=== PATIENT | female | born 1935 | race Caucasian/White ===

== ENCOUNTER 2017-12-02 13:47 | Emergency (ER) | payer MEDICARE, OTHER ==
[2017-12-02] MEDS ORDERED: Acetaminophen/HYDROcodone 325-5 MG Tab PO ONE (15:00)
--- NOTE | 2017-12-02 15:06 | EDM.PDOC ---
ED HPI GENERAL MEDICAL PROBLEM - General Chief Complaint: Lower Extremity Injury/Pain Stated Complaint: HIP PAIN DUE TO FALL Time Seen by Provider: 12/02/17 14:18 - History of Present Illness INITIAL COMMENTS - FREE TEXT/NARRATIVE: This is 82-year-old female accompanied by her family brought into the emergency department for an evaluation of right hip pain after fall yesterday. Patient stated that she lives alone in her trailer, when she was going to the bathroom she slipped and fell onto her right hip on the trailer floor where she sustaining injury to her right hip and buttocks area. She further stated that she had right hip replacement approximately one and half years ago however has no complication postsurgically. She was able to walk without any assistive device and able to move her right lower extremity after fall yesterday. She denies any numbness or weakness of the lower extremities after the fall. However she is complaining of pain to her right-sided hip, rib cage, and buttocks area, which she rated the pain level approximately 8 on a scale of 0- 10. Pain is mainly aggravated by active range of motion while no specific alleviating factors contribute to her pain. She used Tylenol this morning to alleviate pain prior to arrival without any significant help in the pain. She denies striking her head from fall, further denies any bowel or bladder incontinence, dizziness, chest pain or palpitation, shortness of breath, numbness, paresthesia, or weakness. Denies any other concerns at this time. Right Hip Pain Score (Numeric/FACES): 8 Right Chest Pain Score (Numeric/FACES): 8 - Related Data Allergies Allergy/AdvReac Type Severity Reaction Status Date / Time castor oil Allergy Vomiting Verified 12/02/17 14:05 ether Allergy Syncope Verified 12/02/17 14:05 Home Meds: Home Meds Lisinopril 20 mg PO DAILY 12/02/17 [History] Lovastatin 20 mg PO DAILY 12/02/17 [History] Meloxicam 15 mg PO DAILY 12/02/17 [History] amLODIPine Besylate [Norvasc] 10 mg PO DAILY 12/02/17 [History] Past Medical History Cardiovascular History: Reports: High Cholesterol, Hypertension - Past Surgical History Musculoskeletal Surgical History: Reports: Hip Replacement Social & Family History - Tobacco Use Smoking Status *Q: Never Smoker Review of Systems - Review of Systems Review Of Systems: ROS reveals no pertinent complaints other than HPI. ED EXAM, GENERAL - Physical Exam Exam: See Below Exam Limited By: No Limitations General Appearance: Alert, WD/WN, No Apparent Distress Head: Atraumatic, Normocephalic Neck: Normal Inspection, Supple, Non-Tender, Full Range of Motion Respiratory/Chest: No Respiratory Distress, Lungs Clear, Normal Breath Sounds, No Accessory Muscle Use, Other (Diffuse tenderness to palpation over the right mid axillary rib cage. No bruises) Cardiovascular: Normal Peripheral Pulses, Regular Rate, Rhythm GI/Abdominal: Normal Bowel Sounds, Soft Back Exam: Normal Inspection, Full Range of Motion, NT Extremities: Normal Inspection, No Pedal Edema, Normal Capillary Refill, Other ( Limited range of motion on the right hip secondary to pain. Diffuse tenderness to palpation upon the right hip) Neurological: Alert, Oriented, Normal Cognition, No Motor/Sensory Deficits Psychiatric: Normal Affect, Normal Mood Skin Exam: Warm, Dry, Intact, Normal Color, No Rash Course - Vital Signs Last Recorded V/S: Last Vital Signs Temp 36.4 C 12/02/17 14:05 Pulse 84 12/02/17 14:05 Resp BP 150/79 H 12/02/17 14:05 Pulse Ox 91 L 12/02/17 14:05 - Orders/Labs/Meds Orders: Active Orders 24 hr Category Date Time Status Hip Min 1V w Pelvis Rt [CR] Stat Exams 12/02/17 14:56 Taken Ribs 2V w Chest Rt [CR] Stat Exams 12/02/17 14:56 Taken Meds: Medications Discontinued Medications Generic Name Dose Route Start Last Admin Trade Name Damon PRN Reason Stop Dose Admin Hydrocodone Bitart/Acetaminophen 1 tab 12/02/17 15:00 12/02/17 15:13 [place] 325-5 Mg PO 12/02/17 15:01 1 tab ONETIME ONE Administration - Re-Assessments/Exams Free Text/Narrative Re-Assessment/Exam: 12/02/17 16:40 At this time, patient has been evaluated at bedtime. She stated that she is feeling much better and her pain is decreased to 1 on a scale of 0-10. She denies any numbness, weakness, or unable to walk at this time. She is able to move all 4 of her extremities without any significant pain. Patient is ready for discharge. Departure - Departure Time of Disposition: 16:45 Disposition: Home, Self-Care 01 Condition: Good Clinical Impression: Rib pain on right side, Contusion of right hip, Fall at home - Discharge Information Instructions: Contusion, [id number], Hip Pain, Chest Wall Pain Referrals: PCP,Not In Area [Primary Care Provider] - 3 Days (Please call your primary care provider in 3-5 days for reevaluation of today's emergency room visit) Forms: ED Department Discharge Additional Instructions: Patient and family both have been advised to use ibuprofen 800 mg or Tylenol 1000 mg 3 times a day as needed as well as instructed to use ice pack to the injury site multiple times a day as needed for pain control. Patient and family both have been advised on fall prevention. They have been given instructed to return to emergency Department if patient develop any numbness, weakness, unable to walk, chest pain, shortness of breath, fever greater than 100.4F. Patient and family both verbalized understanding of the given instructions and agrees to comply. - My Orders Last 24 Hours: My Active Orders 12/02/17 14:56 Hip Min 1V w Pelvis Rt [CR] Stat Ribs 2V w Chest Rt [CR] Stat - Assessment/Plan Last 24 Hours: My Active Orders 12/02/17 14:56 Hip Min 1V w Pelvis Rt [CR] Stat Ribs 2V w Chest Rt [CR] Stat
--- NOTE | 2017-12-03 07:46 | CR ---
Pelvis and right hip: AP view of the pelvis was obtained as well as lateral view of the right hip. Comparison: No previous study. Right hip prosthesis is seen. Components are aligned. Mild joint space narrowing noted within the left hip. Bony structures are osteopenic. Nothing acute is appreciated. Impression: 1. Incidental findings. Nothing acute seen on AP pelvis or on the lateral right hip exam. Diagnostic code #2
--- NOTE | 2017-12-03 07:46 | CR ---
Chest and right ribs: Frontal view of the chest was obtained as well as three views of the right ribs. Comparison: No prior chest or rib study. Heart is slightly enlarged. Tortuous thoracic aorta is seen. Lungs are clear without acute parenchymal change. Degenerative change noted within both shoulders and within the spine. No discrete fracture or other right sided rib abnormality is seen. Impression: 1. Nothing acute is seen. Incidental findings as noted above. 2. No acute rib fracture is seen. Nondisplaced fracture could be missed due to osteopenia. Diagnostic code #2
== END 2017-12-02 16:55 | disposition home or self-care (01) ==
LOC: JD.ED 13:47
DX: S70.01XA Contusion of right hip, initial encounter (principal); R07.81 Pleurodynia; E78.00 Pure hypercholesterolemia, unspecified; I10 Essential (primary) hypertension; W01.0XXA Fall on same level from slipping, tripping and stumbling without subsequent striking against object, initial encounter; Y92.022 Bathroom in mobile home as the place of occurrence of the external cause; Z79.899 Other long term (current) drug therapy
CPT/HCPCS: 71101; 73501; 99283; A9270; 99284